=== PATIENT | female | born 1955 | race African-American/Black ===

== ENCOUNTER 2017-02-02 00:28 | Emergency (ER) | payer BC ==
[~2017-02-02] VITALS: Ht 162.6 cm; Wt 59.0 kg
[2017-02-02 01:08] VITALS: BP 122/75
[2017-02-02] MEDS ORDERED: MORPHINE SULFATE 4 MG/ML CPJ (NOT FOR IM USE) IV STA (02:03)
[2017-02-02] MEDS ORDERED: ONDANSETRON HCL 4MG/2ML VIAL IV STA (02:03)
== END 2017-02-02 02:30 | disposition left against medical advice (07) ==
LOC: ER 00:28
DX: R07.89 Other chest pain (principal); R03.0 Elevated blood-pressure reading, without diagnosis of hypertension; Z95.2 Presence of prosthetic heart valve; Z90.710 Acquired absence of both cervix and uterus
CPT/HCPCS: 93005; 99283; Z7610